=== PATIENT | female | born 1950 | race Caucasian/White ===

== ENCOUNTER → 2016-11-30 | Outpatient (CLI) | payer MEDICARE, BC ==
[2016-11-30 12:42] LABS: Albumin 4.1 g/dL (3.4-5.0); BUN/Creatinine Ratio 21.7; Basophils # (auto) 0 uL; Basophils % (auto) 0.5 % (0.0-2.0); Bilirubin, Total 0.7 mg/dL (0.2-1.0); Calcium 9.7 mg/dL (8.5-10.1); Eosinophils # (auto) 0.2 uL; Eosinophils % (auto) 2.4 % (0.0-7.0); Hemoglobin 13.6 g/dL (12.2-16.2); Lymphocytes # (auto) 2.3 uL; Lymphocytes % (auto) 30.6 % (10.0-50.0); Mean Corpuscular Hemoglobin 29.8 pg (28.0-32.0); Mean Corpuscular Hgb Conc. 33.2 g/dL (32.0-36.0); Mean Corpuscular Volume 89.8 fL (80.0-100.0); Mean Platelet Volume 11.1 fL (7.4-10.4); Monocytes # (auto) 0.6 uL; Monocytes % (auto) 7.7 % (0.0-12.0); Neutrophils # (auto) 4.3 uL; Neutrophils % (auto) 58.8 % (37.0-80.0); Platelet Count (auto) 204 10^3/uL (140-450); Potassium 4.8 mmol/L (3.5-5.1); Red Cell Distribution Width 13.7 % (11.6-16.0); Total Protein 7.4 g/dL (6.4-8.2); White Blood Cell 7.4 10^3/uL (4.4-10.8)
== END | disposition home or self-care (01) ==
LOC: LAB 10:49
DX: I10 Essential (primary) hypertension (principal); M25.50 Pain in unspecified joint; M06.9 Rheumatoid arthritis, unspecified; Z79.899 Other long term (current) drug therapy; D64.9 Anemia, unspecified
CPT/HCPCS: 36415; 80053; 85025; 85652; 86141

== ENCOUNTER → 2017-07-15 | Outpatient (CLI) | payer MEDICARE, OTHER ==
[2017-07-15 09:14] LABS: Basophils # (auto) 0.1 uL; Basophils % (auto) 1.2 % (0.0-2.0); Eosinophils # (auto) 0.1 uL; Eosinophils % (auto) 1.6 % (0.0-7.0); Hematocrit 40.6 % (36.0-46.0); Hemoglobin 13.5 g/dL (12.2-16.2); Lymphocytes # (auto) 1.6 uL; Lymphocytes % (auto) 25.7 % (10.0-50.0); Mean Corpuscular Hemoglobin 29.9 pg (28.0-32.0); Mean Corpuscular Hgb Conc. 33.3 g/dL (32.0-36.0); Mean Corpuscular Volume 89.9 fL (80.0-100.0); Monocytes # (auto) 0.6 uL; Neutrophils # (auto) 3.8 uL; Neutrophils % (auto) 62.5 % (37.0-80.0); Platelet Count (auto) 180 10^3/uL (140-450); Red Cell Distribution Width 13.7 % (11.8-14.3); White Blood Cell 6.1 10^3/uL (4.4-10.8)
[2017-07-15 09:55] LABS: BUN/Creatinine Ratio 21.8; Bilirubin, Total 0.6 mg/dL (0.2-1.0); Calcium 9.1 mg/dL (8.5-10.1); Potassium 4.4 mmol/L (3.5-5.1); Total Protein 7.3 g/dL (6.4-8.2)
== END | disposition home or self-care (01) ==
LOC: LAB 08:38
DX: I10 Essential (primary) hypertension (principal); E78.00 Pure hypercholesterolemia, unspecified; M06.9 Rheumatoid arthritis, unspecified; D64.9 Anemia, unspecified; Z79.899 Other long term (current) drug therapy
CPT/HCPCS: 36415; 80053; 85025; 85652; 86141